=== PATIENT | female | born 1990 | race Caucasian/White ===

== ENCOUNTER 2017-07-19 18:55 | Inpatient (IN) | payer OTHER ==
[2017-07-19 20:14] VITALS: BMI 33.4
[2017-07-19] MEDS ORDERED: BUTORPHANOL TARTRATE 1 MG/ML VIAL IVPB ONE (20:30)
[2017-07-19] MEDS ORDERED: PROMETHAZINE HCL 25 MG/1 ML VIAL IVPB ONE (20:30)
[2017-07-19] MEDS ORDERED: DEXTROSE 5%-LACTATED RINGERS 1,000 ML IV SCH (20:30)
[2017-07-19 20:38] LABS: BASO % 0.2 % (0-2.0); EOS % 0.5 % (0-4.5); HEMATOCRIT 33.3 % (32.4-45.2); HEMOGLOBIN 10.8 GM/dL (10.7-15.3); LYMPH % 25.9 % (8-40); MCH 26.3 pg (25.7-33.7); MCHC 32.4 g/dl (32.0-36.0); MEAN CELL VOLUME 80.9 fl (80-96); MEAN PLT VOLUME 9.1 fl (7.5-11.1); MONO % 6.4 % (3.8-10.2); PLATELET COUNT 294 K/MM3 (134-434); RBC 4.11 M/mm3 (3.60-5.2); RDW 15.2 % (11.6-15.6)
[2017-07-19 20:52] LABS: INR 0.93 (0.82-1.09); PROTHROMBIN TIME (PATIENT) 10.5 SEC (9.98-11.88)
[2017-07-19 20:55] LABS: ACTIVATED PTT 24.4 SECONDS (26.9-34.4)
[2017-07-19 21:18] LABS: ANION GAP 9 (8-16); BLOOD UREA NITROGEN 12 mg/dL (7-18); CALCIUM 7.8 mg/dL (8.5-10.1); CHLORIDE 107 mmol/L (98-107); CO2 21 mmol/L (21-32); CREATININE 0.6 mg/dL (0.55-1.02); GLUCOSE,RANDOM 88 mg/dL (74-106); SODIUM 137 mmol/L (136-145)
--- NOTE | 2017-07-19 22:01 | HP ---
Past Medical History - Primary Care Physician PCP:: Jessee Merchant - Admission Chief Complaint: 39.4 weeks, labor History of Present Illness: 26 yo f g 2 p 3 [id number] by sono 06/2716 c/o contraction cx 4 cm 80 vx -2 mi, fhr cat 1 , contraction q 3 min , mild to moderte intensity History Source: Patient - Past Medical History ...: 3 ...Para: 1 ...Term: 1 ...Spon : 1 ...LMP: 10/14/16 ... Weeks Gestation by Dates: 39.5 ...EDC by Dates: 07/21/17 ...EDC by Sono: 07/21/17 - Past Surgical History Hx Myomectomy: No Hx Transabdominal Cerclage: No - Smoking History Smoking history: Never smoked Have you smoked in the past 12 months: No Aproximately how many cigarettes per day: 0 - Alcohol/Substance Use Hx Alcohol Use: No - Social History Usual Living Arrangement: Yes: With Spouse History of Recent Travel: No Home Medications - Allergies Allergies/Adverse Reactions: Allergies Allergy/AdvReac Type Severity Reaction Status Date / Time No Known Drug Allergies Allergy Verified 02/17/16 16:16 - Home Medications Home Medications: Ambulatory Orders NK [No Known Home Medication] 02/17/16 Review of Systems - Review of Systems Constitutional: reports: No Symptoms Eyes: reports: No Symptoms HENT: reports: No Symptoms Neck: reports: No Symptoms Cardiovascular: reports: No Symptoms Respiratory: reports: No Symptoms Gastrointestinal: reports: No Symptoms Genitourinary: reports: No Symptoms Breasts: reports: No Symptoms Reported Musculoskeletal: reports: No Symptoms Integumentary: reports: No Symptoms Neurological: reports: No Symptoms Endocrine: reports: No Symptoms Hematology/Lymphatic: reports: No Symptoms Psychiatric: reports: No Symptoms Physical Exam - Maternity Vital Signs: Vital Signs Temperature 98.3 F 07/19/17 20:37 Pulse Rate 110 H 07/19/17 20:52 Respiratory Rate 20 07/19/17 20:52 Blood Pressure 130/81 07/19/17 20:52 O2 Sat by Pulse Oximetry (%) Constitutional: Yes: Well Nourished, No Distress, Calm Eyes: Yes: WNL, Conjunctiva Clear, EOM Intact HENT: Yes: WNL, Atraumatic, Normocephalic Neck: Yes: WNL, Supple, Trachea Midline Cardiovascular: Yes: WNL, Regular Rate and Rhythm Breast(s): Yes: WNL - Abdominal Exam/OB Fundal Height: 40 Number of Fetuses: Single Presentation: Vertex Contractions: Yes Regularity: Regular Intensity: Moderate Monitor Mode: External Heart Rate Location: [facility] Category: I Accelerations: Uniform Decelerations: None - Vaginal Exam/OB Vaginal Bleediing: Bloody Show Dilatation (cm): 4 cm Effacement (%): 75 Amniotic Membrane Status: Bulging - Physical Exam Edema: LLE: Trace, RLE: Trace Deep Tendon Reflex Grade: Normal +2 - Labs Lab Results: CBC, BMP 07/19/17 20:00 07/19/17 20:00 Hemorrhage Risk Assessment - Risk Factors Medium Risk Factors: Yes: None High Risk Factors: Yes: None Risk Score: 1 Risk Level: Medium Risk Problem List - Problems (1) with 39 completed weeks gestation Code(s): Z3A.39 - 39 WEEKS GESTATION OF (2) Labor established Code(s): JUL8885 - Assessment/Plan admit in labor, fhm, if contraction not strong may benfit from low dose pitocin , rba d
[2017-07-19] MEDS: OXYTOCIN 30 UNITS in 0.9% NS 30 UNIT/500 ML INFUS.BAG IVPB SCH (22:15)
[2017-07-19] MEDS ORDERED: BUTORPHANOL TARTRATE 1 MG/ML VIAL IVPUSH ONE (22:30)
[2017-07-20] MEDS ORDERED: DEXTROSE 5%-LACTATED RINGERS 1,000 ML IV SCH (04:30)
[2017-07-20] MEDS ORDERED: BUTORPHANOL TARTRATE 1 MG/ML VIAL ONE ×2 (05:08)
[2017-07-20] MEDS ORDERED: PROMETHAZINE HCL 25 MG/1 ML VIAL ONE (05:08)
[2017-07-20] MEDS ORDERED: FENTANYL/BUPIVACAINE/NS/PF - PCEA - 50 ML DISP.SYRIN EP ONE (07:49)
[2017-07-20] MEDS ORDERED: NALOXONE HCL 0.4 MG/ML VIAL IVPUSH PRN (07:54)
[2017-07-20] MEDS ORDERED: FENTANYL/BUPIVACAINE/NS/PF - PCEA - 50 ML DISP.SYRIN EP SCH ×2 (08:00→11:51)
--- NOTE | 2017-07-20 08:54 | PN ---
Progress Note (short form) - Note Progress Note: cx5 cm80 vx -2 arom, clear . fhr cat 1, has epidural Problem List - Problems (1) with 39 completed weeks gestation Code(s): Z3A.39 - 39 WEEKS GESTATION OF (2) Labor established Code(s): HPM4277 -
[2017-07-20] MEDS ORDERED: LIDOCAINE HCL 1% PRESERVATIVE FREE - 30ML VIAL ONE (10:13)
[2017-07-20] MEDS ORDERED: OXYTOCIN 20 UNITS in 0.9% NS 20 UNIT/1,000 ML INFUS.BAG IV ONE ×2 (10:13→11:41)
[2017-07-20] MEDS ORDERED: BISACODYL 10 MG SUPP.RECT RC PRN (10:48)
[2017-07-20] MEDS ORDERED: METHYLERGONOVINE MALEATE 0.2 MG/1 ML AMP IM PRN (10:48)
[2017-07-20] MEDS ORDERED: oxyCODONE HCL 5 MG TABLET PO PRN (10:48)
[2017-07-20] MEDS ORDERED: BENZOCAINE 20% 57 GM BOTTLE TP PRN (10:48)
[2017-07-20] MEDS ORDERED: WITCH HAZEL 50% (TUCKS) 40 PAD/JAR PAD TP PRN (10:48)
[2017-07-20] MEDS ORDERED: BENZOCAINE 28 GM HEMORRHOIDAL OINTMENT TP PRN (10:48)
[2017-07-20] MEDS ORDERED: D5W-LR W/ 20 UNITS OXYTOCIN 20 UNIT/1,000 ML INFUS.BAG IV SCH (11:00)
[2017-07-20] MEDS ORDERED: ELECTROLYTE-148 SOLN 1,000 ML IV SCH (11:00)
[2017-07-20] MEDS: FERROUS SO4 325 MG TABLET (FP) PO SCH (17:26)
[2017-07-21] MEDS: OXYTOCIN 30 UNITS in 0.9% NS 30 UNIT/500 ML INFUS.BAG IVPB SCH (01:33)
[2017-07-21] MEDS: FERROUS SO4 325 MG TABLET (FP) PO SCH ×2 (08:00→17:19)
--- NOTE | 2017-07-21 08:04 | PN ---
Post Progress Note - Subjective Subjective: no complains except cramps Post Day: 1 Type of Delivery: Vital Signs: Vital Signs Temperature 98.4 F 07/21/17 06:00 Pulse Rate 82 07/21/17 06:00 Respiratory Rate 18 07/21/17 06:00 Blood Pressure 114/64 07/21/17 06:00 O2 Sat by Pulse Oximetry (%) 96 07/20/17 10:15 Breast Exam: Yes: Soft, Other (BF & bottle feeding ). No: Engorged Uterus: Yes: Fundus Firm, Fundus below umbilicus Lochia: Yes: Rubra Lochia, amount: Moderate Extremities: Yes: Calves non-tender Perineum: Yes: Intact Activity: Ambulating - Labs Labs: CBC WBC 9.0 K/mm3 (4.0-10.0) 07/19/17 20:00 RBC 4.11 M/mm3 (3.60-5.2) 07/19/17 20:00 Hgb 10.8 GM/dL (10.7-15.3) D 07/19/17 20:00 Hct 33.3 % (32.4-45.2) 07/19/17 20:00 MCV 80.9 fl (80-96) 07/19/17 20:00 MCH 26.3 pg (25.7-33.7) D 07/19/17 20:00 MCHC 32.4 g/dl (32.0-36.0) 07/19/17 20:00 RDW 15.2 % (11.6-15.6) D 07/19/17 20:00 Plt Count 294 K/MM3 (134-434) 07/19/17 20:00 MPV 9.1 fl (7.5-11.1) 07/19/17 20:00 Neutrophils % 67.0 % (42.8-82.8) 07/19/17 20:00 Lymphocytes % 25.9 % (8-40) 07/19/17 20:00 Monocytes % 6.4 % (3.8-10.2) 07/19/17 20:00 Eosinophils % 0.5 % (0-4.5) 07/19/17 20:00 Basophils % 0.2 % (0-2.0) 01/25/18 20:00 Assessment/Plan stable . pp cbc pending plan discharge tomorrow.
[2017-07-21 08:50] LABS: BASO % 0.3 % (0-2.0); EOS % 0.3 % (0-4.5); HEMATOCRIT 28.1 % (32.4-45.2); HEMOGLOBIN 8.9 GM/dL (10.7-15.3); LYMPH % 22.7 % (8-40); MCH 25.7 pg (25.7-33.7); MCHC 31.8 g/dl (32.0-36.0); MEAN CELL VOLUME 80.9 fl (80-96); MEAN PLT VOLUME 8.5 fl (7.5-11.1); MONO % 3.9 % (3.8-10.2); NEUT % 72.8 % (42.8-82.8); PLATELET COUNT 226 K/MM3 (134-434); RBC 3.47 M/mm3 (3.60-5.2); RDW 15.2 % (11.6-15.6)
[2017-07-21] MEDS ORDERED: DIPHTH,PERTUSS(ACELL),TET 0.5 ML DISP.SYRIN IM ONE (10:00)
[2017-07-21] MEDS: PRENATAL VITAMINS W/ FOLIC ACID TABLET (FP) PO SCH (10:14)
[2017-07-21] MEDS ORDERED: FLU VACCINE QUAD 60 MCG/0.5 ML (MDV 17-18) IM ONE (12:15)
[2017-07-21] MEDS: IBUPROFEN 600 MG TABLET (FP) PO PRN (17:09)
[2017-07-21] MEDS: ACETAMINOPHEN 325 MG TABLET (FP) PO PRN (17:10)
[2017-07-21] MEDS ORDERED: SENNOSIDES/DOCUSATE COMBO (SENNA PLUS) TABLET (UD) PO PRN (22:00)
--- NOTE | 2017-07-22 08:40 | PN ---
Post Progress Note - Subjective Subjective: asymptomatic Post Day: 2 Type of Delivery: Vital Signs: Vital Signs Temperature 98.5 F 07/21/17 22:00 Pulse Rate 81 07/21/17 22:00 Respiratory Rate 18 07/21/17 22:00 Blood Pressure 124/69 07/21/17 22:00 O2 Sat by Pulse Oximetry (%) 96 07/20/17 10:15 Breast Exam: Yes: Soft, Other (BF ). No: Engorged Uterus: Yes: Fundus Firm, Fundus below umbilicus Lochia: Yes: Rubra Lochia, amount: Moderate Extremities: Yes: Calves non-tender Perineum: Yes: Intact Activity: Ambulating - Labs Labs: CBC WBC 10.0 K/mm3 (4.0-10.0) 07/21/17 08:00 RBC 3.47 M/mm3 (3.60-5.2) L 07/21/17 08:00 Hgb 8.9 GM/dL (10.7-15.3) L D 07/21/17 08:00 Hct 28.1 % (32.4-45.2) L D 07/21/17 08:00 MCV 80.9 fl (80-96) 07/21/17 08:00 MCH 25.7 pg (25.7-33.7) 07/21/17 08:00 MCHC 31.8 g/dl (32.0-36.0) L 07/21/17 08:00 RDW 15.2 % (11.6-15.6) 07/21/17 08:00 Plt Count 226 K/MM3 (134-434) D 07/21/17 08:00 MPV 8.5 fl (7.5-11.1) 07/21/17 08:00 Neutrophils % 72.8 % (42.8-82.8) 07/21/17 08:00 Lymphocytes % 22.7 % (8-40) 07/21/17 08:00 Monocytes % 3.9 % (3.8-10.2) 07/21/17 08:00 Eosinophils % 0.3 % (0-4.5) 07/21/17 08:00 Basophils % 0.3 % (0-2.0) 07/21/17 08:00 Assessment/Plan Anemia stable. counselled for anemia. discharge today
[2017-07-22] MEDS: IBUPROFEN 600 MG TABLET (FP) PO PRN (08:41)
[2017-07-22] MEDS: FERROUS SO4 325 MG TABLET (FP) PO SCH (08:41)
[2017-07-22] MEDS: ACETAMINOPHEN 325 MG TABLET (FP) PO PRN (08:42)
[2017-07-22] MEDS: PRENATAL VITAMINS W/ FOLIC ACID TABLET (FP) PO SCH (10:24)
[2017-07-22 11:31] VITALS: BP 124/66; PULSE 72; TEMP 98.8
--- NOTE | 2017-07-23 15:30 | DS ---
Physical Exam-RUBBER CURER Vital Signs: Vital Signs Temperature 98.8 F 07/22/17 10:00 Pulse Rate 72 07/22/17 10:00 Respiratory Rate 18 07/22/17 10:00 Blood Pressure 124/66 07/22/17 10:00 O2 Sat by Pulse Oximetry (%) 96 07/20/17 10:15 Constitutional: Yes: Well Nourished, No Distress, Calm Eyes: Yes: WNL, Conjunctiva Clear, EOM Intact HENT: Yes: WNL, Atraumatic, Normocephalic Neck: Yes: WNL, Supple, Trachea Midline Cardiovascular: Yes: WNL, Regular Rate and Rhythm Respiratory: Yes: WNL, Regular, CTA Bilaterally Gastrointestinal: Yes: WNL ...Rectal Exam: Yes: WNL Renal/: Yes: WNL ....Post : Yes: Uterus firm, Uterus non-tender, Slight lochia rubra Breast(s): Yes: WNL Musculoskeletal: Yes: WNL Extremities: Yes: WNL Edema: No Integumentary: Yes: WNL Neurological: Yes: WNL, Alert, Oriented ...Motor Strength: WNL Psychiatric: Yes: WNL, Alert, Oriented Labs: CBC, BMP 07/21/17 08:00 07/19/17 20:00 Delivery - Delivery Vaginal Delivery: Spontaneous (NO COMPLICATION) Type of Anesthesia: Epidural Episiotomy/Laceration: Perineal Extension/lac, 1st degree EBL (cc): 300 Delivery, Single - Stages of Labor Date 1st Stage Initiatied: 07/20/17 Time 1st Stage Initiated: 00:00 Date 2nd Stage Initiated: 07/20/17 Time 2nd Stage Initiated: 10:00 Date of Delivery: 07/20/17 Time of Delivery: 10:29 Time Placenta Delivered: 10:35 Placenta: Yes: Spontaneous - Condition of Infant Screen Tacker/Family Coach Present: No Infant Gender: Male Weight: 7 lb 12 oz Position: Left, OA Total Hours ROM (Hrs/Mins): 1HR/50MIN - 1 Minute Total Score: 9 5 Minutes Total Score: 9 - [place] Feeding Plan Initial Plan: Elected not to breastfeed exclusively throughout hospitalization Discharge Summary Reason For Visit: INDUCTION OF LABOR Procedures: Principal: Hospital Course: UNEVENTFUL Condition: Stable - Instructions Diet, Activity, Other Instructions: Discharge Instructions * Out of Bed * * Regular Diet * Aaliyah Care * Avoid sex for 6 weeks * rtc 6 weeks If you experience excessive bleeding or fever over 101 degrees, call doctor, the clinic or go to the Emergency Room. Referrals: Jessee Merchant MD [Staff Physician] - Disposition: HOME - Home Medications Comprehensive Discharge Medication List: Ambulatory Orders Vitamins (Sjr) - 1 tab PO DAILY 07/20/17 Acetaminophen [Tylenol .Regular Strength -] 650 mg PO Q3H PRN tablet 07/21/17 Ferrous Sulfate [Feosol] 325 mg PO BIDWM #60 tab 07/21/17 Ibuprofen [Motrin -] 200 mg PO Q4H PRN tablet 07/21/17 Vitamins (Sjr) - 1 tab PO DAILY #30 tablet 07/21/17
== END 2017-07-22 12:15 | disposition home or self-care (01) | DRG 560 ==
LOC: JLDR 18:55 → J3W 07-20 12:44
PROVIDERS: ADMIT Obstetrics & Gynecology; ATTEND Obstetrics & Gynecology
PROC: 10E0XZZ Delivery of Products of Conception, External Approach (ICD-10-PCS; principal; 2017-07-20)
PROC: 0HQ9XZZ Repair Perineum Skin, External Approach (ICD-10-PCS; 2017-07-20)
DX: O99.02 Anemia complicating childbirth (principal); O70.0 First degree perineal laceration during delivery; Z3A.39 39 weeks gestation of pregnancy; Z37.0 Single live birth
CPT/HCPCS: 36415; 59409; 80048; 85025; 85610; 85730; 86593; 86850; 86900; 86901; 90688; 90715

== ENCOUNTER 2019-02-15 02:03 | Emergency (ER) | payer OTHER ==
--- NOTE | 2019-02-15 02:11 | PDOC ---
History of Present Illness - General Stated Complaint: EARACHE - History of Present Illness Initial Comments: The pt is a 28F w/ no PMH who presents for evaluation of intermittent R ear pain for 1 year and acutely worsening for 2 day. Initially felt internal but now feels like it surrounds the ear. Pain is sharp, constant (previously intermittent), non-radiating, exacerbated by touching the pinna and mildly alleviated by Tylenol. Denies fevers/chills, hearing loss/changes, trauma, recent prolonged water submersion/swimming. Endorses morning tinnitis, denies currently. Meds: Denies Allergies: Denies 02/15/19 02:26 Past History - Past Medical History Allergies/Adverse Reactions: Allergies Allergy/AdvReac Type Severity Reaction Status Date / Time No Known Drug Allergies Allergy Verified 02/15/19 02:14 Home Medications: Ambulatory Orders Amox-Tr/K Cl [Augmentin - 500Mg Tablet] 1 tab PO TID #21 tab 02/15/19 Ofloxacin Otic [Floxin Otic (Ear) Solution -] 10 drop OT BID #1 bottle 02/15/19 Asthma: Yes (NO MEDS) Cancer: No Cardiac Disorders: No Diabetes: No HTN: No Seizures: No Thyroid Disease: No - Surgical History Abdominal Surgery: Yes Cholecystectomy: Yes - Reproductive History (#): 1 Para: 0 - Suicide/Smoking/Psychosocial Hx Smoking Status: No Smoking History: Never smoked Have you smoked in the past 12 months: No Number of Cigarettes Smoked Daily: 0 Hx Alcohol Use: No Drug/Substance Use Hx: No Hx Substance Use Treatment: No Review of Systems - Review of Systems Able to Perform ROS?: Yes Comments:: GENERAL/CONSTITUTIONAL: No fever or chills. No weakness HEAD, EYES, EARS, NOSE AND THROAT: No change in vision. No sore throat CARDIOVASCULAR: No chest pain or shortness of breath RESPIRATORY: Denies cough, hemoptysis GASTROINTESTINAL: No nausea, vomiting, diarrhea or constipation GENITOURINARY: No dysuria, frequency, or change in urination MUSCULOSKELETAL: No joint or muscle swelling or pain. No neck or back pain SKIN: No rash NEUROLOGIC: No headache, vertigo, loss of consciousness, or change in strength/ sensation ENDOCRINE: No increased thirst. No abnormal weight change HEMATOLOGIC/LYMPHATIC: No anemia, easy bleeding, or history of blood clots ALLERGIC/IMMUNOLOGIC: No hives or skin allergy 02/15/19 02:10 Is the patient limited Thai proficient: No *Physical Exam - Vital Signs Initial Vital Signs Temp Pulse Resp BP Pulse Ox 98.5 F 81 20 121/82 96 02/15/19 02:16 02/15/19 02:16 02/15/19 02:16 02/15/19 02:16 02/15/19 02:16 02/15/19 02:29 - Physical Exam Comments: GENERAL: Awake, alert, and oriented to person/place/time, in no acute distress HEAD: No signs of trauma, normocephalic, atraumatic EYES: PERRLA, EOMI, sclera anicteric, conjunctiva clear ENT: Left TM normal; unable to visualize R TM, R EAM swollen with small amount of exudate and erythema, no oropharyngeal erythema LUNGS: No distress, speaks in full sentences, clear to auscultation bilaterally HEART: Regular rate and rhythm, normal S1 and S2, no murmurs appreciated, peripheral pulses normal and equal bilaterally ABDOMEN: Soft, nontender, normoactive bowel sounds. No guarding, no rebound. No masses EXTREMITIES: Normal inspection, Normal range of motion, no edema. No clubbing or cyanosis NEUROLOGICAL: Cranial nerves II through XII grossly intact. Normal speech, normal gait, no focal sensorimotor deficits SKIN: Warm, Dry 02/15/19 02:11 Medical Decision Making - Medical Decision Making The pt is a 28F w/ no reported PMH who presents for evaluation of 2 days of acute R ear pain. Ddx: OE, OM ED Course Tylenol for pain Augmentin 500mg PO once in ED Rx for Augmentin and otic gtt Plan for D/C w/ PCP f/u Discharge instructions and return precautions given Pt in agreement and verbalized understanding Dispo: home 02/15/19 02:30 *DC/Admit/Observation/Transfer Diagnosis at time of Disposition: Otitis externa Qualifiers: Otitis externa type: unspecified type Chronicity: acute Laterality: right Qualified Code(s): H60.501 - Unspecified acute noninfective otitis externa, right ear Otitis media Qualifiers: Otitis media type: unspecified Chronicity: acute Qualified Code(s): H66.90 - Otitis media, unspecified, unspecified ear - Discharge Dispostion Disposition: HOME Condition at time of disposition: Stable Decision to Admit order: No - Prescriptions Prescriptions: Amox-Tr/K Cl [Augmentin - 500Mg Tablet] 1 tab PO TID #21 tab Ofloxacin Otic [Floxin Otic (Ear) Solution -] 10 drop OT BID #1 bottle - Referrals Referrals: [facility] [place] [place] [Provider Group] - Patient Instructions Printed Discharge Instructions: DI for Otitis Externa Additional Instructions: You were seen in the Emergency Department for evaluation of your ear pain. You were found to have an ear infection. You were prescribed oral and drop antibiotics. Take them as directed. Review the handout provided at discharge. Follow up with your primary care provider or the referral given. Return to the Emergency Department if you develop fevers/chills, worsening hearing, change in hearing, worsening symptoms, or any new/concerning symptoms. For pain you may take Tylenol 650mg every 6 hours and Ibuprofen 600mg every 6-8 hours, alternating them each time. Lo vieron en el departamento de emergencias para evaluar griffiths dolor de odo. Se descubri que tienes nicolás infeccin de odo. Le recetaron antibiticos por va oral y gota. Tmelos segn las indicaciones. Revise el folleto proporcionado al amy. Dre un seguimiento con griffiths proveedor de atencin primaria o la referencia chip. Regrese al Departamento de Emergencias si desarrolla fiebre / escalofros , empeoramiento de la audicin, cambios en la audicin, empeoramiento de los sntomas o cualquier sntoma nuevo o preocupante. Para el dolor, puede zelalem Tylenol 650mg cada 6 horas e Ibuprofen 600mg cada 6- 8 horas, alternando cada vez. Print Language: GERMAN - Post Discharge Activity Forms/Work/School Notes: Back to Work
[2019-02-15 02:19] VITALS: BP 121/82; PULSE 81; TEMP 98.5; BMI 64.5
[2019-02-15] MEDS ORDERED: ACETAMINOPHEN 325 MG TABLET (FP) PO ONE (02:30)
[2019-02-15] MEDS ORDERED: ACETAMINOPHEN 325 MG TABLET (FP) ONE (02:34)
--- NOTE | 2019-02-15 02:51 | PDOC ---
Attending Attestation - Resident Resident Name: Jay Matthewsan - ED Attending Attestation I have performed the following: I have examined & evaluated the patient, The case was reviewed & discussed with the resident, I agree w/resident's findings & plan - HPI HPI: 02/15/19 02:49 Pt comes with OE and OM - Physicial Exam PE: 02/15/19 02:49 Agree with resident exam. Pt has right OE worse than the left. Also OPM on right, with debris in the canal; Left TM looks clear. - Medical Decision Making 02/15/19 02:50 Pt can follow with ENT. We will rx augmentin as well as floxin otic; pt has no ill contacts.
[2019-02-15] MEDS ORDERED: AMOX TR/POT CLAV 500MG/125MG TABLETS (FP) PO ONE (02:57)
[2019-02-15] MEDS ORDERED: OFLOXACIN 0.3% OTIC SOLUTION 5 ML BOTTLE AD ONE (02:57)
[2019-02-15] MEDS ORDERED: AMOX TR/POT CLAV 500MG/125MG TABLETS (FP) ONE (02:59)
== END 2019-02-15 03:05 | disposition home or self-care (01) ==
LOC: JER 02:03
DX: H60.501 Unspecified acute noninfective otitis externa, right ear (principal); H66.91 Otitis media, unspecified, right ear
CPT/HCPCS: 99281-25

== ENCOUNTER 2024-03-18 19:45 | Emergency (ER) | payer OTHER ==
[2024-03-18 19:50] VITALS: BP 125/80; PULSE 86; RESP 20; TEMP 98.9; BMI 28.3
[2024-03-18] MEDS: IBUPROFEN 600 MG TABLET (FP) PO ONE (21:03)
[2024-03-18] MEDS ORDERED: IBUPROFEN 600 MG TABLET (FP) PO ONE (21:04)
== END 2024-03-18 21:07 | disposition home or self-care (01) ==
LOC: JERFT 19:45
DX: H66.012 Acute suppurative otitis media with spontaneous rupture of ear drum, left ear (principal); H92.02 Otalgia, left ear
CPT/HCPCS: 99283-25

== ENCOUNTER 2024-03-21 23:33 | Emergency (ER) | payer OTHER ==
[2024-03-22 00:23] VITALS: BP 117/74; PULSE 82; RESP 16; TEMP 98.7; BMI 28.3
[2024-03-22] MEDS ORDERED: IBUPROFEN 600 MG TABLET (FP) PO ONE (01:30)
[2024-03-22] MEDS: IBUPROFEN 600 MG TABLET (FP) PO ONE (01:31)
[2024-03-22] MEDS: ACETAMINOPHEN 1000 MG/100 ML BAG IVPB ONE (01:31)
== END 2024-03-22 01:57 | disposition home or self-care (01) ==
LOC: JER 23:33
DX: H92.02 Otalgia, left ear (principal); H60.92 Unspecified otitis externa, left ear
CPT/HCPCS: 99283-25